=== PATIENT | female | born 1970 | race African-American/Black ===

== ENCOUNTER 2016-09-14 15:51 | Emergency (ER) | payer MEDICAID ==
[~2016-09-14] VITALS: Ht 170.2 cm; Wt 82.6 kg
[~2016-09-14 15:51] MED LIST: BENTYL10 MG ORAL; NEXIUM20 MG ORAL; NORVASC10 MG ORAL; ZANTAC150 MG ORAL
[2016-09-14 17:46] LABS: APPEARANCE,URINE CLEAR; KETONES,URINE 1+ (NEGATIVE); LEUKOCYTE ESTERASE ,URINE 1+ (NEGATIVE); NITRITE,URINE NEGATIVE (NEGATIVE); PH,URINE 6 (4.5-8.0); PROTEIN,URINE 1+ (NEGATIVE); UROBILINOGEN,URINE NORMAL MG/DL (0.0-1.0)
[2016-09-14 18:05] LABS: BACTERIA,URINE FEW /HPF; RBC,URINE 0-2 /HPF (0 - 2); SQUAMOUS EPITHELIAL CELL,UR FEW /LPF (NONE/OCC); WBC,URINE 0-2 /HPF (0 - 2)
[2016-09-14 18:06] LABS: CALCIUM OXALATE CRYSTALS,UR MODERATE /LPF; MUCUS,URINE MANY /LPF (NONE/OCC)
[2016-09-14] MEDS ORDERED: Cyclobenzaprine 10mg Tab ORAL ONE (18:30)
[2016-09-14] MEDS ORDERED: Ketorolac 30mg Inj IM ONE (18:30)
[2016-09-14 18:42] VITALS: BP 172/101
--- NOTE | 2016-09-15 16:56 | Emergency Room Report ---
History of Present Illness General Chief Complaint: Lower Back Pain or Injury Source: Patient Present Illness HPI The patient is a 46-year-old female presenting with lower back pain which began 2 days prior. The patient is unsure why the pain began. Patient denies prior history of back pain. The pain is described as a 10/10 dull ache to the mid lower back and does not radiate. Pain is worse with movement such as bending over and twisting. Pain better with laying down. The patient denies numbness or tingling of extremities. The patient has not tried any medications Allergies: Coded Allergies: AZITHROMYCIN (Verified Allergy, Unknown, 09/14/16) Uncoded Allergies: PENICILLIN (Allergy, Unknown, hives, 04/26/16) Patient History Past Medical History: see triage record Pertinent Family History: none Last Menstrual Period: 09/03/16 Now: No Reviewed Nursing Documentation: PMH: Agreed, PSxH: Agreed Nursing Documentation-PMH Hx Hypertension: Yes Review of Systems All Other Systems: negative except mentioned in HPI Physical Exam Vital Signs Date Time Temp Pulse Resp B/P Pulse Ox O2 Delivery O2 Flow Rate FiO2 09/14/16 16:40 98.1 78 17 162/97 98 Room Air Sp02 EP Interpretation: reviewed, normal General Appearance: no apparent distress, alert, GCS 15, non-toxic Head: normocephalic, atraumatic Eyes: bilateral eye PERRL, bilateral eye normal inspection Respiratory: chest non-tender, lungs clear, normal breath sounds, speaking full sentences Cardiovascular #1: regular rate, rhythm, no edema Musculoskeletal: back normal, digits/nails normal, gait/station normal, normal range of motion, tender - TTP over bilat lumbar parspinous muscles Neurologic: alert, oriented x3, responsive, motor strength/tone normal, sensory intact, speech normal Psychiatric: judgement/insight normal, memory normal, mood/affect normal, no suicidal/homicidal ideation Skin: normal color, no rash, warm/dry, well hydrated Lymphatic: no adenopathy Medical Decision Making PA Attestation Dr. Spencer is my supervising physician. Patient management was discussed with my supervising physician Diagnostic Impression: Primary Impression: Sciatica ER Course The patient is a 46-year-old female presenting with lower back pain which began 2 days prior PE: Vitals show HTN. Pt states she missed her anti-HTN medication this evening. There is TTP over bilat lumbar paraspinous muscles. No midline TTP. No step- offs. Normal Gait. UA: 1+ leuk esterase. Otherwise unremarkable. The pt is given flexeril and toradol for pain with good relief. Pt will be [facility] with motrin and flexeril. ER precautions given Laboratory Tests Test 09/14/16 17:23 Urine Color Yellow Urine Appearance Clear Urine pH 6 (4.5-8.0) Urine Specific [place] 1.020 (1.005-1.035) Urine Protein 1+ (NEGATIVE) H Urine Glucose (UA) Negative (NEGATIVE) Urine Ketones 1+ (NEGATIVE) H Urine Occult Blood Negative (NEGATIVE) Urine Nitrite Negative (NEGATIVE) Urine Bilirubin Negative (NEGATIVE) Urine Urobilinogen Normal MG/DL (0.0-1.0) Urine Leukocyte Esterase 1+ (NEGATIVE) H Urine RBC 0-2 /HPF (0 - 2) Urine WBC 0-2 /HPF (0 - 2) Urine Squamous Epithelial Cells Few /LPF (NONE/OCC) Urine Calcium Oxalate Crystals Moderate /LPF (NONE) Urine Bacteria Few /HPF (NONE) Urine Mucus Many /LPF (NONE/OCC) H Urine HCG, Qualitative Negative Lab Results Impression UA: 1+ leuk esterase. Otherwise unremarkable. Last Vital Signs Date Time Temp Pulse Resp B/P Pulse Ox O2 Delivery O2 Flow Rate FiO2 09/14/16 18:42 98.1 79 14 172/101 98 Room Air Status: improved Disposition: HOME, SELF-CARE Condition: Improved Patient Instructions: Back Pain, Adult Additional Instructions: I discussed my findings with the patient. All questions and concerns have been answered. Treatment and medication compliance have been addressed. I advised the patient that they need to follow up with PMD in 3-5 days. Return to ED if pain remains or worsens, numbness or tingling occurs, new rash is noticed, fever is noticed, or if needed for any reason. Patient verbalized understanding of discharge instructions. MARTINE SOLARES Sep 15, 2016 16:56
== END 2016-09-14 18:45 | disposition home or self-care (01) ==
LOC: EMR 17:20
DX: M54.30 Sciatica, unspecified side (principal); I10 Essential (primary) hypertension; Z88.0 Allergy status to penicillin
CPT/HCPCS: 81003; 81025; 96372; 99283; J1885

== ENCOUNTER 2016-10-14 00:37 | Emergency (ER) | payer MEDICAID ==
[~2016-10-14] VITALS: Ht 170.2 cm; Wt 83.9 kg
[2016-10-14 00:50] VITALS: BP 155/37
[2016-10-14 02:15] VITALS: BP 149/87
[2016-10-14 02:35] LABS: INR 1.1 (0.9-1.1)
[2016-10-14 02:40] LABS: ALANINE AMINOTRANSFERASE 11 U/L (3-33); ALBUMIN/GLOBULIN RATIO 1.3 (1.0-2.7); ASPARTATE AMINO TRANSFERASE 17 U/L (5-40); CALCIUM 8.9 mg/dL (8.6-10.2); CARBON DIOXIDE 21 mEQ/L (20-30); CHLORIDE 101 mEQ/L (98-107); CREATININE 0.9 mg/dL (0.5-0.9); GLOMERULAR FILTRATION RATE > 60 mL/min (>60); HEMOLYSIS 26; POTASSIUM 3.5 mEQ/L (3.4-4.9); SODIUM 139 mEQ/L (135-145); TOTAL PROTEIN 6.7 g/dL (6.6-8.7)
[2016-10-14 02:43] LABS: TROPONIN I < 0.30 ng/mL (<=0.30)
[2016-10-14 02:45] LABS: BASOPHILS % (AUTO) 0.8 % (0.0-2.0); EOSINOPHILS % (AUTO) 3.3 % (0.0-3.0); LYMPHOCYTES % (AUTO) 35.3 % (20.0-45.0); MEAN CORPUSCULAR HEMOGLOBIN 26.6 PG (27.0-31.0); MEAN CORPUSCULAR HGB CONC 31.6 G/DL (32.0-36.0); MEAN CORPUSCULAR VOLUME 84 FL (80-99); MEAN PLATELET VOLUME 6.8 FL (6.5-10.1); NEUTROPHILS % (AUTO) 52.7 % (45.0-75.0); PLATELET COUNT 269 K/UL (150-450); RED BLOOD COUNT 3.54 M/UL (4.20-5.40); RED CELL DISTRIBUTION WIDTH 15.7 % (11.6-14.8); WHITE BLOOD COUNT 5.9 K/UL (4.8-10.8)
[2016-10-14 02:52] LABS: CKMB 1.6 ng/mL (< 3.8)
[2016-10-14] MEDS ORDERED: PEPCID40 MG PO (03:13)
[2016-10-14 03:20] VITALS: BP 135/80
--- NOTE | 2016-10-14 05:21 | Emergency Room Report ---
History of Present Illness General Chief Complaint: Chest Pain Source: Patient Present Illness HPI Patient presents with complaints of upper chest pain Mid epigastric discomfort Reports that she has been told that she was anemic in the past She also felt that there was some tingling and swelling to the ulnar aspect of the right hand Denies any fevers or chills denies any fall or trauma Denies any pleurisy Patient essentially points throughout the bilateral upper chest area and also epigastric region Allergies: Coded Allergies: AZITHROMYCIN (Verified Allergy, Unknown, 09/14/16) Uncoded Allergies: PENICILLIN (Allergy, Unknown, hives, 04/26/16) Patient History Past Medical History: see triage record Pertinent Family History: none Last Menstrual Period: 09/30/16 Now: No Reviewed Nursing Documentation: PMH: Agreed, PSxH: Agreed Nursing Documentation-PMH Past Medical History: No History, Except For Hx Hypertension: Yes Review of Systems All Other Systems: negative except mentioned in HPI Physical Exam Vital Signs Date Time Temp Pulse Resp B/P Pulse Ox O2 Delivery O2 Flow Rate FiO2 10/14/16 00:40 99.1 80 18 155/37 100 Room Air Sp02 EP Interpretation: reviewed, normal General Appearance: well appearing, no apparent distress Head: normocephalic, atraumatic Eyes: bilateral eye EOMI, bilateral eye PERRL ENT: hearing grossly normal, normal pharynx, TMs + canals normal, uvula midline Neck: full range of motion, supple, no meningismus, no bony tend Respiratory: lungs clear, normal breath sounds, no rhonchi, no respiratory distress, no retraction, no accessory muscle use Cardiovascular #1: normal peripheral pulses, regular rate, rhythm, no edema, no gallop, no JVD, no murmur Gastrointestinal: normal bowel sounds, non tender, soft, no mass, no organomegaly, non-distended, no guarding, no hernia, no pulsatile mass, no rebound Genitourinary: no CVA tenderness Musculoskeletal: normal inspection Neurologic: oriented x3, responsive, marketing technology coordinator III-XII nml as tested, motor strength/ tone normal, sensory intact Psychiatric: mood/affect normal Skin: normal color, no rash, warm/dry, palpation normal Lymphatic: normal inspection, no adenopathy Medical Decision Making Diagnostic Impression: Primary Impression: Chest pain ER Course Patient is a fairly complex patient with multiple differential to consideration including but not limited to cardiac cardiopulmonary and vascular emergencies Patient's blood work is appropriate, hemoglobin is 9.4 which sounds to be the patient's baseline Otherwise hemodynamically stable as well The exam does not reveal any obvious swelling of the right hand or the arm my differential for DVT is low Patient is stable for close outpatient followup, Labs Test 10/14/16 01:40 White Blood Count 5.9 K/UL (4.8-10.8) Red Blood Count 3.54 M/UL (4.20-5.40) Hemoglobin 9.4 G/DL (12.0-16.0) Hematocrit 29.8 % (37.0-47.0) Mean Corpuscular Volume 84 FL (80-99) Mean Corpuscular Hemoglobin 26.6 PG (27.0-31.0) Mean Corpuscular Hemoglobin Concent 31.6 G/DL (32.0-36.0) Red Cell Distribution Width 15.7 % (11.6-14.8) Platelet Count 269 K/UL (150-450) Mean Platelet Volume 6.8 FL (6.5-10.1) Neutrophils (%) (Auto) 52.7 % (45.0-75.0) Lymphocytes (%) (Auto) 35.3 % (20.0-45.0) Monocytes (%) (Auto) 8.0 % (1.0-10.0) Eosinophils (%) (Auto) 3.3 % (0.0-3.0) Basophils (%) (Auto) 0.8 % (0.0-2.0) Prothrombin Time 11.0 SEC (9.30-11.50) Prothromb Time International Ratio 1.1 (0.9-1.1) Activated Partial Thromboplast Time 19 SEC (23-33) Sodium Level 139 mEQ/L (135-145) Potassium Level 3.5 mEQ/L (3.4-4.9) Chloride Level 101 mEQ/L (98-107) Carbon Dioxide Level 21 mEQ/L (20-30) Blood Urea Nitrogen 14 mg/dL (7-23) Creatinine 0.9 mg/dL (0.5-0.9) Estimat Glomerular Filtration Rate > 60 mL/min (>60) Glucose Level 112 mg/dL (74-106) Calcium Level 8.9 mg/dL (8.6-10.2) Total Bilirubin < 0.2 mg/dL (0.0-1.2) Aspartate Amino Transf (AST/SGOT) 17 U/L (5-40) Alanine Aminotransferase (ALT/SGPT) 11 U/L (3-33) Alkaline Phosphatase 52 U/L (35-104) Total Creatine Kinase 128 U/L (26-140) Creatine Kinase MB 1.6 ng/mL (< 3.8) Creatine Kinase MB Relative Index 1.2 Troponin I < 0.30 ng/mL (<=0.30) Total Protein 6.7 g/dL (6.6-8.7) Albumin 3.8 g/dL (3.5-5.2) Globulin 2.9 g/dL Albumin/Globulin Ratio 1.3 (1.0-2.7) EKG Diagnostic Results Rate: normal Rhythm: NSR ST Segments: no acute changes Rhythm Strip Diag. Results EP Interpretation: yes Rate: 66 Rhythm: NSR, no PVC's, no ectopy Chest X-Ray Diagnostic Results EP Interpretation: Yes Findings: no consolidation, no effusion, no pneumothorax Number of Views: 1 Last Vital Signs Date Time Temp Pulse Resp B/P Pulse Ox O2 Delivery O2 Flow Rate FiO2 10/14/16 03:20 98.7 85 15 135/80 100 Room Air Status: improved Disposition: HOME, SELF-CARE Condition: Improved Scripts Famotidine (PEPCID) 40 Mg Tablet 40 MG PO DAILY, #7 TAB 0 Refills Prov: BRENDA SIERRA D.O. 10/14/16 Referrals: [facility] (PCP) Departure Forms: Return to Work Return to Work in (Days): 2 Return to Work Date: Oct 16, 2016 Patient Instructions: Nonspecific Chest Pain Additional Instructions: Patient is provided with the discharge instructions notified to follow up with primary doctor in the next 2-3 days otherwise return to the er with any worsening symptoms. Please note that this report is being documented using [employer] technology. This can lead to erroneous entry secondary to incorrect interpretation by the dictating instrument. BRENDA SIERRA D.O. Oct 14, 2016 05:21
--- NOTE | 2016-10-14 10:53 | Diagnostic Imaging Report ---
Indication: Chest Pain Comparison: None A single view chest radiograph was obtained. Findings: Cardiomediastinal appearance is within normal limits for age. Pulmonary vascularity is appropriate. The diaphragmatic contour is smooth and costophrenic angles are sharp. No pleural effusions are identified. The bones are unremarkable. Impression: No acute findings
--- NOTE | 2016-10-15 14:03 | Cardiology Report ---
APPROVED REPORT EKG Measurement Heart [id number] Normal sinus rhythm Normal ECG
== END 2016-10-14 03:20 | disposition home or self-care (01) ==
LOC: EMR 01:10
DX: R07.9 Chest pain, unspecified (principal); R10.13 Epigastric pain; I10 Essential (primary) hypertension; Z88.0 Allergy status to penicillin
CPT/HCPCS: 36415; 71010; 80053; 82550; 82553; 84484; 85025; 85610; 85730; 93005; 99283

== ENCOUNTER 2017-03-24 17:25 | Emergency (ER) | payer MEDICAID ==
[~2017-03-24] VITALS: Ht 170.2 cm; Wt 83.9 kg
[~2017-03-24 17:25] MED LIST changes: +PEPCID40 MG PO
[2017-03-24 17:28] VITALS: BP 140/85
[2017-03-24] MEDS ORDERED: GABAPENTIN300 MG ORAL (17:31)
[2017-03-24] MEDS ORDERED: IRON 21/7 TABL1 EACH PO (17:31)
[2017-03-24] MEDS ORDERED: Famotidine 20 MG/ 2ML VIAL IVP ONE (17:45)
[2017-03-24] MEDS ORDERED: Metoclopramide 10mg/2ml Inj IVP ONE (18:00)
[2017-03-24 18:24] LABS: BASOPHILS % (AUTO) 0.8 % (0.0-2.0); EOSINOPHILS % (AUTO) 3.2 % (0.0-3.0); LYMPHOCYTES % (AUTO) 25.8 % (20.0-45.0); MEAN CORPUSCULAR HEMOGLOBIN 32.7 PG (27.0-31.0); MEAN CORPUSCULAR HGB CONC 35.2 G/DL (32.0-36.0); MEAN CORPUSCULAR VOLUME 93 FL (80-99); MEAN PLATELET VOLUME 7.1 FL (6.5-10.1); MONOCYTES % (AUTO) 6.8 % (1.0-10.0); NEUTROPHILS % (AUTO) 63.4 % (45.0-75.0); PLATELET COUNT 209 K/UL (150-450); RED BLOOD COUNT 2.55 M/UL (4.20-5.40); WHITE BLOOD COUNT 7.3 K/UL (4.8-10.8)
[2017-03-24 18:39] LABS: ALANINE AMINOTRANSFERASE 15 U/L (3-33); ALBUMIN/GLOBULIN RATIO 1.5 (1.0-2.7); ANION GAP 10 (5-15); ASPARTATE AMINO TRANSFERASE 18 U/L (5-40); CALCIUM 9.2 mg/dL (8.6-10.2); CARBON DIOXIDE 26 mEQ/L (20-30); CHLORIDE 105 mEQ/L (98-107); CREATININE 0.8 mg/dL (0.5-0.9); GLOMERULAR FILTRATION RATE > 60 mL/min (>60); HEMOLYSIS 3; LIPASE 116 U/L (< 60); POTASSIUM 3.4 mEQ/L (3.4-4.9); SODIUM 141 mEQ/L (135-145); TOTAL PROTEIN 6.8 g/dL (6.6-8.7)
[2017-03-24 18:51] LABS: APPEARANCE,URINE SLIGHTLY CLOUDY; KETONES,URINE NEGATIVE (NEGATIVE); LEUKOCYTE ESTERASE ,URINE 1+ (NEGATIVE); NITRITE,URINE NEGATIVE (NEGATIVE); PH,URINE 5 (4.5-8.0); PROTEIN,URINE NEGATIVE (NEGATIVE); UROBILINOGEN,URINE NORMAL MG/DL (0.0-1.0)
[2017-03-24 18:55] LABS: PROTHROMBIN TIME 10.2 SEC (9.30-11.50)
[2017-03-24 18:59] LABS: CALCIUM OXALATE CRYSTALS,UR MANY /LPF; RBC,URINE 0-2 /HPF (0 - 2); SQUAMOUS EPITHELIAL CELL,UR MODERATE /LPF (NONE/OCC); WBC,URINE 0-2 /HPF (0 - 2)
[2017-03-24 19:00] LABS: BACTERIA,URINE FEW /HPF
--- NOTE | 2017-03-24 19:49 | Emergency Room Report ---
History of Present Illness General Chief Complaint: Abdominal Pain Source: Patient, Medical Record Present Illness HPI The patient is a 46-year-old female with a history of anemia presenting for lower abd pain and dark stools. Symptoms began approximately one week prior. Pain is a 5/10 dull ache to the mid upper abdomen and does not radiate. No known provoking factors. She denies constipation or diarrhea. She has not seen any bright red blood in the stools or on toilet paper. She denies taking any products containing bismuth or eating any foods with dye. She states that recent blood work showed hemoglobin of 6. She states that she has recently stopped taking supplemental iron. She denies any other symptoms including N, V, F, chills, back pain Allergies: Coded Allergies: AZITHROMYCIN (Verified Allergy, Unknown, 09/14/16) PENICILLINS (Unverified Adverse Reaction, Unknown, 03/24/17) Uncoded Allergies: PENICILLIN (Allergy, Unknown, hives, 04/26/16) Patient History Past Medical History: see triage record Pertinent Family History: none Reviewed Nursing Documentation: PMH: Agreed, PSxH: Agreed Nursing Documentation-PMH Past Medical History: No History, Except For Hx Hypertension: Yes Review of Systems All Other Systems: negative except mentioned in HPI Physical Exam Vital Signs Date Time Temp Pulse Resp B/P Pulse Ox O2 Delivery O2 Flow Rate FiO2 03/24/17 17:28 98.1 103 16 140/85 98 Room Air Sp02 EP Interpretation: reviewed, normal General Appearance: no apparent distress, alert, GCS 15, non-toxic Head: normocephalic, atraumatic Eyes: bilateral eye PERRL, bilateral eye normal inspection, bilateral eye other - conjunctival palor, bilateral eye scleral icterus ENT: hearing grossly normal, normal pharynx, no angioedema, normal voice Neck: full range of motion, supple/symm/no masses Respiratory: chest non-tender, lungs clear, normal breath sounds, speaking full sentences Gastrointestinal: normal bowel sounds, soft, non-distended, no guarding, no rebound, tenderness - suprapubic Rectal: deferred Genitourinary: normal inspection, no CVA tenderness Musculoskeletal: back normal, gait/station normal, normal range of motion, non- tender Neurologic: alert, oriented x3, responsive, motor strength/tone normal, sensory intact, speech normal Psychiatric: judgement/insight normal, memory normal, mood/affect normal, no suicidal/homicidal ideation Skin: normal color, no rash, warm/dry, well hydrated Lymphatic: no adenopathy Medical Decision Making PA Attestation Dr. Salvador is my supervising physician. Patient management was discussed with my supervising physician Diagnostic Impression: Primary Impression: Abdominal pain Qualified Codes: R10.9 - Unspecified abdominal pain Additional Impressions: Spleen anomaly Anemia Qualified Codes: D50.9 - Iron deficiency anemia, unspecified Uterine fibroid Qualified Codes: D25.9 - Leiomyoma of uterus, unspecified ER Course The patient is a 46-year-old female with a history of anemia presenting for lower abd pain and dark stools Differential diagnoses considered include but not limited to GI bleed, gastritis , pancreatitis, appendicitis, , UTI, among others Physical exam: No apparent distress There is bilateral conjunctival pallor TTP over suprapubic region only The hemoglobin is 8.3 The patient states that this is improved from her usual hemoglobin of 6 CT scan shows hypodensities of the spleen and uterine fibroids. Otherwise unremarkable The patient was given reported these findings and will followup with primary doctor To continue to take the iron supplementation pills. ER precautions given Laboratory Tests Test 03/24/17 17:45 03/24/17 18:00 Urine Color Pale yellow Urine Appearance Slightly cloudy Urine pH 5 (4.5-8.0) Urine Specific [place] 1.025 (1.005-1.035) Urine Protein Negative (NEGATIVE) Urine Glucose (UA) Negative (NEGATIVE) Urine Ketones Negative (NEGATIVE) Urine Occult Blood Negative (NEGATIVE) Urine Nitrite Negative (NEGATIVE) Urine Bilirubin Negative (NEGATIVE) Urine Urobilinogen Normal MG/DL (0.0-1.0) Urine Leukocyte Esterase 1+ (NEGATIVE) H Urine RBC 0-2 /HPF (0 - 2) Urine WBC 0-2 /HPF (0 - 2) Urine Squamous Epithelial Cells Moderate /LPF (NONE/OCC) H Urine Calcium Oxalate Crystals Many /LPF (NONE) Urine Bacteria Few /HPF (NONE) Urine HCG, Qualitative Negative White Blood Count 7.3 K/UL (4.8-10.8) Red Blood Count 2.55 M/UL (4.20-5.40) L Hemoglobin 8.3 G/DL (12.0-16.0) L Hematocrit 23.7 % (37.0-47.0) L Mean Corpuscular Volume 93 FL (80-99) Mean Corpuscular Hemoglobin 32.7 PG (27.0-31.0) H Mean Corpuscular Hemoglobin Concent 35.2 G/DL (32.0-36.0) Red Cell Distribution Width 16.0 % (11.6-14.8) H Platelet Count 209 K/UL (150-450) Mean Platelet Volume 7.1 FL (6.5-10.1) Neutrophils (%) (Auto) 63.4 % (45.0-75.0) Lymphocytes (%) (Auto) 25.8 % (20.0-45.0) Monocytes (%) (Auto) 6.8 % (1.0-10.0) Eosinophils (%) (Auto) 3.2 % (0.0-3.0) H Basophils (%) (Auto) 0.8 % (0.0-2.0) Prothrombin Time 10.2 SEC (9.30-11.50) Prothrombin Time INR 1.0 (0.9-1.1) PTT 24 SEC (23-33) Sodium Level 141 mEQ/L (135-145) Potassium Level 3.4 mEQ/L (3.4-4.9) Chloride Level 105 mEQ/L (98-107) Carbon Dioxide Level 26 mEQ/L (20-30) Anion Gap 10 (5-15) Blood Urea Nitrogen 14 mg/dL (7-23) Creatinine 0.8 mg/dL (0.5-0.9) Estimate Glomerular Filtration Rate > 60 mL/min (>60) Glucose Level 117 mg/dL (74-106) H Calcium Level 9.2 mg/dL (8.6-10.2) Total Bilirubin < 0.2 mg/dL (0.0-1.2) Aspartate Amino Transferase (AST) 18 U/L (5-40) Alanine Aminotransferase (ALT) 15 U/L (3-33) Alkaline Phosphatase 56 U/L (35-104) Total Protein 6.8 g/dL (6.6-8.7) Albumin 4.1 g/dL (3.5-5.2) Globulin 2.7 g/dL Albumin/Globulin Ratio 1.5 (1.0-2.7) Lipase 116 U/L (< 60) H Lab Results Impression No leukocytosis. Hgb of 8.3 CT/MRI/US Diagnostic Results CT/MRI/US Diagnostic Results : Imaging Test Ordered: Abd/pelvis Impression hypodensities of spleen and uterine fibroids per radiologist. Last Vital Signs Date Time Temp Pulse Resp B/P Pulse Ox O2 Delivery O2 Flow Rate FiO2 03/24/17 17:28 98.1 103 16 140/85 98 Room Air Status: improved Disposition: HOME, SELF-CARE Condition: Improved MARTINE SOLARES Mar 24, 2017 19:49
[2017-03-24 20:07] VITALS: BP 140/85
--- NOTE | 2017-03-28 08:28 | Diagnostic Imaging Report ---
Indication: Abdominal pain Technique: Continuous helical transaxial imaging of the abdomen and pelvis was obtained from the lung bases to the pubic symphysis during intravenous contrast administration. Coronal 2-D reformats were also obtained. Study obtained in a Siemens sensation [address] Total Dose length Product (DLP): [address] Dose Index Volume (CTDIvol): 18 mGy Comparison: None Findings: There are rounded hypodensities within the spleen nature which is not known. Further investigation suggested. Comparison previous films if available is recommended. The lung bases are clear. There is a left renal cyst measuring 3 cm. The liver is unremarkable. The pancreas and gallbladder are unremarkable. There is no hydronephrosis, free fluid or free air. The uterus is enlarged secondary to multiple fibroids. There is suggestion of a left ovarian cyst measuring about 2.8 x 1.8 cm. The appendix is normal. Impression: Several rounded hypodensities within the spleen, etiology unknown. Further workup is recommended including comparison with previous studies available. Sonographic correlation may be of benefit. No acute findings in the abdomen identified. Left renal cyst Suggestion of a left ovarian cyst. Uterine fibroids. The CT scanner at [facility] is accredited by the [employer] and the scans are performed using dose optimization techniques as appropriate to a performed exam including Automatic Exposure control.
== END 2017-03-24 20:07 | disposition home or self-care (01) ==
LOC: EMR 17:55
DX: R10.30 Lower abdominal pain, unspecified (principal); D64.9 Anemia, unspecified; N28.1 Cyst of kidney, acquired; D73.9 Disease of spleen, unspecified; D25.9 Leiomyoma of uterus, unspecified; Z23 Encounter for immunization; I10 Essential (primary) hypertension
CPT/HCPCS: 36415; 74177; 80053; 81003; 81025; 83690; 85025; 85610; 85730; 86850; 86900; 86901; 96374; 96375; 99284; J2765; Q9967; S0028

== ENCOUNTER 2017-08-10 09:03 | Emergency (ER) | payer MEDICAID ==
[~2017-08-10] VITALS: Ht 170.2 cm; Wt 83.9 kg
[~2017-08-10 09:03] MED LIST changes: +GABAPENTIN300 MG ORAL; +IRON 21/7 TABL1 EACH PO
[2017-08-10] MEDS ORDERED: Ketorolac 30mg Inj IM ONE (09:30)
[2017-08-10 09:48] LABS: APPEARANCE,URINE CLEAR; KETONES,URINE NEGATIVE (NEGATIVE); LEUKOCYTE ESTERASE ,URINE 1+ (NEGATIVE); NITRITE,URINE NEGATIVE (NEGATIVE); PH,URINE 5 (4.5-8.0); PROTEIN,URINE 1+ (NEGATIVE); UROBILINOGEN,URINE NORMAL MG/DL (0.0-1.0)
[2017-08-10 09:57] LABS: BACTERIA,URINE FEW /HPF; MUCUS,URINE MODERATE /LPF (NONE/OCC); SQUAMOUS EPITHELIAL CELL,UR FEW /LPF (NONE/OCC); WBC,URINE 0-2 /HPF (0 - 2)
[2017-08-10] MEDS ORDERED: IBUPROFEN600 MG ORAL (10:14)
[2017-08-10] MEDS ORDERED: NORCO 5-325 TA1 EACH ORAL (10:14)
[2017-08-10 10:30] VITALS: BP 161/103
--- NOTE | 2017-08-11 16:01 | Emergency Room Report ---
History of Present Illness General Chief Complaint: Lower Back Pain or Injury Source: Patient Present Illness HPI 47-year-old female presents ED complaining of back pain for last 3 days. Pain as throbbing, 8/10, localized right lower back. Patient notes history of back pain and sciatica. Denies fevers or chills. Denies nausea or vomiting. No other aggravating relieving factors. Denies any other says isn't Allergies: Coded Allergies: AZITHROMYCIN (Verified Allergy, Unknown, 09/14/16) PENICILLINS (Unverified Adverse Reaction, Unknown, 03/24/17) Uncoded Allergies: PENICILLIN (Allergy, Unknown, hives, 04/26/16) Patient History Past Medical History: HTN Past Surgical History: none Pertinent Family History: none Social History: Denies: smoking, alcohol use, drug use Last Menstrual Period: October 2016. Now: No Immunizations: UTD Reviewed Nursing Documentation: PMH: Agreed, PSxH: Agreed Nursing Documentation-PMH Hx Hypertension: Yes Review of Systems All Other Systems: negative except mentioned in HPI Physical Exam Vital Signs Date Time Temp Pulse Resp B/P (MAP) Pulse Ox O2 Delivery O2 Flow Rate FiO2 08/10/17 09:06 97.9 86 19 156/101 99 Room Air Sp02 EP Interpretation: reviewed, normal General Appearance: no apparent distress, alert, GCS 15, non-toxic Head: normocephalic Eyes: bilateral eye normal inspection, bilateral eye PERRL ENT: normal ENT inspection Neck: normal inspection Respiratory: normal inspection Cardiovascular #1: normal inspection Gastrointestinal: normal inspection Rectal: deferred Genitourinary: no CVA tenderness, no vertebral tenderness, other - paraspinal lumbar tenderness Musculoskeletal: normal inspection Neurologic: alert, oriented x3, responsive, motor strength/tone normal, sensory intact, speech normal Psychiatric: normal inspection Skin: normal inspection Lymphatic: normal inspection Medical Decision Making Diagnostic Impression: Primary Impression: Sciatica Qualified Codes: M54.31 - Sciatica, right side ER Course Hospital Course 47-year-old female presents ED complaining of lower back pain. No evidence of trauma Differential diagnoses include: pyelonephritis, kidney stone, muscle strain, Lspine fracture Clinical course Patient placed on stretcher. After initial history and physical I ordered toradol for pain. UA unremarkable Upon reassessment patient states pain has improved. Diagnosis - sciatica Stable and discharged to home with prescription for Motrin, [place]. Followup with PMD. Return to ED if symptoms recur or worsen Labs Test 08/10/17 09:28 Urine Color Yellow Urine Appearance Clear Urine pH 5 (4.5-8.0) Urine Specific [place] 1.015 (1.005-1.035) Urine Protein 1+ (NEGATIVE) Urine Glucose (UA) Negative (NEGATIVE) Urine Ketones Negative (NEGATIVE) Urine Occult Blood 1+ (NEGATIVE) Urine Nitrite Negative (NEGATIVE) Urine Bilirubin Negative (NEGATIVE) Urine Urobilinogen Normal MG/DL (0.0-1.0) Urine Leukocyte Esterase 1+ (NEGATIVE) Urine RBC 2-4 /HPF (0 - 2) Urine WBC 0-2 /HPF (0 - 2) Urine Squamous Epithelial Cells Few /LPF (NONE/OCC) Urine Bacteria Few /HPF (NONE) Urine Mucus Moderate /LPF (NONE/OCC) Urine HCG, Qualitative Negative Last Vital Signs Date Time Temp Pulse Resp B/P (MAP) Pulse Ox O2 Delivery O2 Flow Rate FiO2 08/10/17 10:30 98.3 83 18 161/103 100 Room Air Status: improved Disposition: HOME, SELF-CARE Condition: Stable Scripts Hydrocodone Bit/Acetaminophen 5-325* (NORCO 5-325*) 1 Each Tablet 1 TAB ORAL Q6H Y for For Pain, #10 TAB 0 Refills Prov: LORRAINE DEMARCO M.D. 08/10/17 Ibuprofen* (MOTRIN*) 600 Mg Tablet 600 MG ORAL Q8H Y for For Pain, #30 TAB 0 Refills Prov: LORRAINE DEMARCO M.D. 08/10/17 Referrals: NON PHYSICIAN (PCP) Patient Instructions: Back Pain, Adult LORRAINE DEMARCO M.D. Aug 11, 2017 16:01
== END 2017-08-10 10:30 | disposition home or self-care (01) ==
LOC: EMR 09:20
DX: M54.41 Lumbago with sciatica, right side (principal); I10 Essential (primary) hypertension; Z88.0 Allergy status to penicillin
CPT/HCPCS: 81003; 81025; 96372; 99284; J1885

== ENCOUNTER 2018-12-20 18:37 | Emergency (ER) | payer MEDICAID ==
[~2018-12-20] VITALS: Ht 170.2 cm; Wt 83.9 kg
[~2018-12-20 18:37] MED LIST changes: +IBUPROFEN600 MG ORAL; +NORCO 5-325 TA1 EACH ORAL
[2018-12-20 19:10] VITALS: BP 141/82
--- NOTE | 2018-12-20 19:10 | NUR ---
ED Nurse Note: Pt arrived ED from home, c/o the 2nd digit finger was injuried and swollen at home today and pain 01/22. Pt is A/O X 4. Vital signs stable at this time, waiting for orders.
[2018-12-20] MEDS ORDERED: Tetanus/Diptheria/Pertussis IM ONE (19:30)
[2018-12-20] MEDS ORDERED: Ketorolac 30mg Inj IM ONE (19:30)
--- NOTE | 2018-12-20 19:46 | Emergency Room Report ---
History of Present Illness General Chief Complaint: Upper Extremity Injury Source: Patient Present Illness HPI 48 YO Female presents to the ED with 2 complaints. First, she received a puncture wound from a metal staple and is now having swelling , 7/10 in severity pain, bruising and erythema to the right index finger at the puncture site. this occurred this am. pt. reports she is not sure when her last Tetanus vaccination was and she is also unsure if there is a possible retained FB. Pt. denies taking blood thinning medications. pt. denies paresthesias or loss of gross motor movement in the affected extremity. Secondly, pt. is complaining of an exacerbation of her chronic back pain x 1 week. pt. denies trauma or fall. she reports frequent flare up's of her sciatica type pain. She rates 7/10 in severity. Denies saddle anesthesia, urinary retention or incontinence. Pt. denies recent spinal procedures or hx of cancer. She reports Motrin has not been providing relief of her pain. pt. states bending forward or lying completely flat exacerbates her back symptoms. She also reports bending the right index finger or palpation exacerbates her finger pain. She is right hand dominant. Allergies: Coded Allergies: AZITHROMYCIN (Verified Allergy, Unknown, 09/14/16) PENICILLINS (Unverified Adverse Reaction, Unknown, 03/24/17) Patient History Past Medical History: see triage record Past Surgical History: none Pertinent Family History: none Last Menstrual Period: last year Now: No Reviewed Nursing Documentation: PMH: Agreed; PSxH: Agreed Nursing Documentation-PMH Past Medical History: No History, Except For Hx Hypertension: Yes Review of Systems All Other Systems: negative except mentioned in HPI Physical Exam Vital Signs Date Time Temp Pulse Resp B/P (MAP) Pulse Ox O2 Delivery O2 Flow Rate FiO2 12/20/18 18:56 98.4 90 20 97 Room Air Sp02 EP Interpretation: reviewed, normal General Appearance: no apparent distress, alert, GCS 15, non-toxic Head: normocephalic, atraumatic Eyes: bilateral eye normal inspection, bilateral eye PERRL ENT: hearing grossly normal, normal voice Neck: full range of motion Respiratory: chest non-tender, lungs clear, normal breath sounds, speaking full sentences Cardiovascular #1: regular rate, rhythm, normal capillary refill Genitourinary: normal inspection, no CVA tenderness Musculoskeletal: back normal, gait/station normal, normal range of motion, swelling - PIP right index finger. , other - Puncture wound of Right index finger at the PIP joint. Swelling, erythema, bruising noted. No obvious FB noted , tender - TTP to the PIP of the right index finger, and the Right upper gluteal musculature and right low lumbar paraspinal musculature, no bony midline ttp. Neurologic: alert, oriented x3, responsive, motor strength/tone normal, sensory intact, normal gait, speech normal, grossly normal Psychiatric: judgement/insight normal Skin: no rash, warm/dry, well hydrated, other - Puncture wound of Right index finger at the PIP joint. Swelling, erythema, bruising noted. No obvious FB noted Lymphatic: no adenopathy Medical Decision Making PA Attestation Dr. Thompson is my supervising Physician whom patient management has been discussed with. Diagnostic Impression: Primary Impression: Puncture wound Additional Impression: Back pain Qualified Codes: M54.41 - Lumbago with sciatica, right side ER Course 48 YO Female presents to the ED with 2 complaints. First, she received a puncture wound from a metal staple and is now having swelling , 7/10 in severity pain, bruising and erythema to the right index finger at the puncture site. this occurred this am. pt. reports she is not sure when her last Tetanus vaccination was and she is also unsure if there is a possible retained FB. Pt. denies taking blood thinning medications. pt. denies paresthesias or loss of gross motor movement in the affected extremity. Secondly, pt. is complaining of an exacerbation of her chronic back pain x 1 week. pt. denies trauma or fall. she reports frequent flare up's of her sciatica type pain. She rates 7/10 in severity. Denies saddle anesthesia, urinary retention or incontinence. Pt. denies recent spinal procedures or hx of cancer. She reports Motrin has not been providing relief of her pain. pt. states bending forward or lying completely flat exacerbates her back symptoms. She also reports bending the right index finger or palpation exacerbates her finger pain. She is right hand dominant. Ddx considered but are not limited to foreign body, tendon injury, cellulitis, Vital signs: are WNL, pt. is afebrile H&PE are most consistent with: Puncture wound of Right index finger at the PIP joint. Swelling, erythema, bruising noted. No obvious FB noted will do imaging to confirm. ORDERS: none required at this time, the diagnosis is clinical ED INTERVENTIONS: -Tetanus vaccine was administered as pt. vaccination status was unknown. - The wound was copiously irrigated with normal saline, and explored for foreign body for which no FB was found. -Discussed with patient that we do not close puncture wounds as that would increase his risk of infection. - Discussed with patient that we will be treating her with oral antibiotics. Sciatica /back pain interventions: Toradol IM, Lidoderm TP. DISCHARGE: At this time pt. is stable for d/c to home. Will provide printed patient care instructions, and any necessary prescriptions. Care plan and follow up instructions have been discussed with the patient prior to discharge. Other X-Ray Diagnostic Results Other X-Ray Diagnostic Results : X-Ray ordered: Right Fingers # of Views/Limited Vs Complete: 3 View Indication: Pain EP Interpretation: Yes DEVIN Xray: Interpretation reviewed, by supervising MD, and agrees with findings. Interpretation: no dislocation, no soft tissue swelling, no fractures, other - no radiopaque fb's Impression: No acute disease Electronically Signed by: Thea Campos PA-C Last Vital Signs Date Time Temp Pulse Resp B/P (MAP) Pulse Ox O2 Delivery O2 Flow Rate FiO2 12/20/18 18:56 98.4 90 20 97 Room Air Status: improved Disposition: HOME, SELF-CARE Condition: Stable Scripts Methocarbamol* (ROBAXIN-750*) 750 Mg Tablet 750 MG PO QID for 7 Days, #28 TAB 0 Refills Prov: Thea Campos 12/20/18 Ibuprofen* (MOTRIN*) 600 Mg Tablet 600 MG ORAL THREE TIMES A DAY, #20 TAB 0 Refills Prov: Thea Campos 12/20/18 Lidocaine (Lidoderm) 1 Each Adh..patch 1 PATCH TOPIC DAILY, #30 PATCH 0 Refills Patch(es) may remain in place for up to 12 hours in any 24-hour period. Prov: Thea Campos 12/20/18 Bacitracin/Polymyxin B Sulfate (BACITRACIN-POLYMYXIN OINTMENT) 28.35 Gm Oint...g. 1 APPLIC TP BID, #28.3 GM Prov: Thea Campos 12/20/18 Doxycycline Hyclate* (VIBRAMYCIN*) 100 Mg Capsule 100 MG ORAL EVERY 12 HOURS for 7 Days, #14 CAP 0 Refills Prov: Thea Campos 12/20/18 Patient Instructions: Puncture Wound, [id number], Sciatica, [id number] Additional Instructions: Take medications as directed. Follow up with a Primary Care Provider in 3-5 days, even if your symptoms have resolved. --Please review list of primary care clinics, if you do not already have a primary care provider Return sooner to ED if new symptoms occur, or current symptoms become worse. Do not drink alcohol, drive, or operate heavy machinery while taking Robaxin ( Muscle Relaxers) as this may cause drowsiness. - Please note that this Emergency Department Report was dictated using [employer] painter technology software, occasionally this can lead to erroneous entry secondary to interpretation by the dictation equipment. Thea Campos December 20, 2018 19:46
[2018-12-20] MEDS ORDERED: BACITRACIN-P28.35 GM TP (19:51)
[2018-12-20] MEDS ORDERED: LIDODERM700 M1 TOPIC (19:51)
[2018-12-20] MEDS ORDERED: IBUPROFEN600 MG ORAL (19:51)
[2018-12-20] MEDS ORDERED: VIBRAMYCIN100 MG ORAL (19:51)
[2018-12-20] MEDS ORDERED: ROBAXIN-750750 MG PO (19:55)
--- NOTE | 2018-12-20 19:59 | NUR ---
ED Nurse Note: Meds given as ordered.
[2018-12-20 20:05] VITALS: BP 141/82
--- NOTE | 2018-12-20 20:05 | NUR ---
D/cER DISCHARGE NOTE: Patient is cleared to be discharged per Andres Sidhu/DEVIN. Pt is aox4, on room air with stable vital signs. Pt was given dc and prescription instructions, pt was able to verbalize understanding. Pt's ID band removed. pt is able to ambulate with steady gait and took all belongings.
--- NOTE | 2018-12-21 11:02 | Diagnostic Imaging Report ---
Indication: Finger pain Comparison: None Findings: 3 images of the right second and third digits obtained. No fracture, malalignment, radiopaque foreign body identified. There is soft tissue swelling of the index finger. IMPRESSION: Soft tissue swelling
== END 2018-12-20 20:05 | disposition home or self-care (01) ==
LOC: EMR 19:30
DX: S61.230A Puncture wound without foreign body of right index finger without damage to nail, initial encounter (principal); Z23 Encounter for immunization; M54.41 Lumbago with sciatica, right side; W26.8XXA Contact with other sharp object(s), not elsewhere classified, initial encounter; Y92.9 Unspecified place or not applicable; Z88.0 Allergy status to penicillin; I10 Essential (primary) hypertension
CPT/HCPCS: 73140; 90471; 90715; 96372; 99283; J1885

== ENCOUNTER 2019-03-07 18:55 | Emergency (ER) | payer MEDICAID ==
[~2019-03-07] VITALS: Ht 170.2 cm; Wt 81.6 kg
[~2019-03-07 18:55] MED LIST changes: +BACITRACIN-P28.35 GM TP; +LIDODERM700 M1 TOPIC; +ROBAXIN-750750 MG PO; +VIBRAMYCIN100 MG ORAL
[2019-03-07] MEDS ORDERED: HYDROCHLOROTH12.5 M2 ORAL (19:03)
--- NOTE | 2019-03-07 19:05 | NUR ---
ED Nurse Note: patient drove self to ED c/o chest pain radiation to the left shoulder area. C/O fatigue. BP 152/81, pulse 89. Patient is alert, oriented x4, able to ambulate without difficulty. Bed is in lowest position. Call light is within aesy reach while in bed will continue to monitor.
[2019-03-07 19:10] VITALS: BP 150/80
[2019-03-07 19:39] LABS: BASOPHILS % (AUTO) 1.1 % (0.0-2.0); EOSINOPHILS % (AUTO) 2.8 % (0.0-3.0); HEMATOCRIT 37.8 % (37.0-47.0); HEMOGLOBIN 12.5 G/DL (12.0-16.0); LYMPHOCYTES % (AUTO) 25.6 % (20.0-45.0); MEAN CORPUSCULAR VOLUME 90 FL (80-99); MONOCYTES % (AUTO) 8.2 % (1.0-10.0); NEUTROPHILS % (AUTO) 62.2 % (45.0-75.0); PLATELET COUNT 276 K/UL (150-450); RED BLOOD COUNT 4.21 M/UL (4.20-5.40); RED CELL DISTRIBUTION WIDTH 11.2 % (11.6-14.8)
[2019-03-07 19:52] LABS: ANION GAP 9 mmol/L (5-15); BLOOD UREA NITROGEN 22 mg/dL (7-18); CALCIUM 10.2 MG/DL (8.5-10.1); CARBON DIOXIDE 30 MMOL/L (21-32); CHLORIDE 103 MMOL/L (98-107); CREATININE 0.8 MG/DL (0.55-1.30); POTASSIUM 3.3 MMOL/L (3.5-5.1); SODIUM 142 MMOL/L (136-145)
--- NOTE | 2019-03-07 20:01 | Emergency Room Report ---
History of Present Illness General Chief Complaint: Chest Pain Source: Patient, Medical Record Present Illness HPI 48-year-old female presents ED for evaluation. Patient complaining of chest pain x1 week. Radiating to the shoulder and upper back. Comes and goes. Denies chest pain at this time. Dull, 5 out of 10. Denies shortness of breath. Notes history of hypertension. Denies smoking or drug use. No other aggravating relieving factors. Denies any other associated symptoms Allergies: Coded Allergies: AZITHROMYCIN (Verified Allergy, Unknown, 09/14/16) PENICILLINS (Unverified Adverse Reaction, Unknown, 03/24/17) Patient History Past Medical History: HTN Past Surgical History: none Pertinent Family History: none Social History: Denies: smoking, alcohol use, drug use Last Menstrual Period: last yr Now: No Immunizations: UTD Reviewed Nursing Documentation: PMH: Agreed; PSxH: Agreed Nursing Documentation-PMH Hx Hypertension: Yes Review of Systems All Other Systems: negative except mentioned in HPI Physical Exam Vital Signs Date Time Temp Pulse Resp B/P (MAP) Pulse Ox O2 Delivery O2 Flow Rate FiO2 03/07/19 19:00 98.4 90 18 137/91 (106) 97 Room Air Sp02 EP Interpretation: reviewed, normal General Appearance: no apparent distress, alert, GCS 15, non-toxic Head: normocephalic, atraumatic Eyes: bilateral eye normal inspection, bilateral eye PERRL ENT: hearing grossly normal, normal pharynx, no angioedema, normal voice Neck: full range of motion, supple/symm/no masses Respiratory: chest non-tender, lungs clear, normal breath sounds, speaking full sentences Cardiovascular #1: regular rate, rhythm, no edema Cardiovascular #2: 2+ carotid (R), 2+ carotid (L), 2+ radial (R), 2+ radial (L) , 2+ dorsalis pedis (R), 2+ dorsalis pedis (L) Gastrointestinal: normal bowel sounds, non tender, soft, non-distended, no guarding, no rebound Rectal: deferred Genitourinary: normal inspection, no CVA tenderness Musculoskeletal: back normal, gait/station normal, normal range of motion, non- tender Neurologic: alert, oriented x3, responsive, motor strength/tone normal, sensory intact, speech normal Psychiatric: judgement/insight normal, memory normal, mood/affect normal, no suicidal/homicidal ideation Reflexes: 3+ bicep (R), 3+ bicep (L), 3+ tricep (R), 3+ tricep (L), 3+ knee (R) , 3+ knee (L) Lymphatic: no adenopathy Medical Decision Making Diagnostic Impression: Primary Impression: Chest pain Qualified Codes: R07.9 - Chest pain, unspecified ER Course Hospital Course 48 yo F presents with chest pain, back pain x 1 week Differential diagnoses include: Rib fracture, CA/unstable angina, contusion, muscle strain Clinical course Patient placed on stretcher. After initial history and physical I ordered labs , EKG, chest x-ray. labs reviewed- all electrolytes normal, troponins negative, no leukocytosis, hemoglobin/hematocrit stable EKG - NSr, no acute ischemic changes interpreted by me Chest x-ray-no cardiomegaly, no rib fracture, no pneumothorax, no acute process discussed findings with patient. Given presentation along with normal EKG and negative troponin with symptoms x1 week I believe patient can be safely discharged at this time. Pain could be muscular. patient is safe for discharge for close outpatient follow-up. States she has a PMD I. I feel this is a highly complex case requiring extensive working including EKG/Rhythm strip, Xray/CT/US, Blood/urine lab work, repeat exams while in ED, and administration of strong opiates/narcotics for pain control, admission to hospital or close patient follow up. Diagnosis - chest pain Stable and discharged to home. Instructed to followup with PMD. Return to ED if symptoms recur or worsen Labs Test 03/07/19 19:15 White Blood Count 7.0 K/UL (4.8-10.8) Red Blood Count 4.21 M/UL (4.20-5.40) Hemoglobin 12.5 G/DL (12.0-16.0) Hematocrit 37.8 % (37.0-47.0) Mean Corpuscular Volume 90 FL (80-99) Mean Corpuscular Hemoglobin 29.6 PG (27.0-31.0) Mean Corpuscular Hemoglobin Concent 33.0 G/DL (32.0-36.0) Red Cell Distribution Width 11.2 % (11.6-14.8) Platelet Count 276 K/UL (150-450) Mean Platelet Volume 6.1 FL (6.5-10.1) Neutrophils (%) (Auto) 62.2 % (45.0-75.0) Lymphocytes (%) (Auto) 25.6 % (20.0-45.0) Monocytes (%) (Auto) 8.2 % (1.0-10.0) Eosinophils (%) (Auto) 2.8 % (0.0-3.0) Basophils (%) (Auto) 1.1 % (0.0-2.0) Sodium Level 142 MMOL/L (136-145) Potassium Level 3.3 MMOL/L (3.5-5.1) Chloride Level 103 MMOL/L (98-107) Carbon Dioxide Level 30 MMOL/L (21-32) Anion Gap 9 mmol/L (5-15) Blood Urea Nitrogen 22 mg/dL (7-18) Creatinine 0.8 MG/DL (0.55-1.30) Estimat Glomerular Filtration Rate > 60 mL/min (>60) Glucose Level 109 MG/DL (74-106) Calcium Level 10.2 MG/DL (8.5-10.1) Total Bilirubin 0.3 MG/DL (0.2-1.0) Aspartate Amino Transf (AST/SGOT) 23 U/L (15-37) Alanine Aminotransferase (ALT/SGPT) 17 U/L (12-78) Alkaline Phosphatase 80 U/L (46-116) Total Creatine Kinase 136 U/L (26-308) Creatine Kinase MB 1.0 NG/ML (0.0-3.6) Creatine Kinase MB Relative Index 0.7 Troponin I 0.000 ng/mL (0.000-0.056) Pro-B-Type Natriuretic Peptide 27 pg/mL (0-125) Total Protein 7.9 G/DL (6.4-8.2) Albumin 4.6 G/DL (3.4-5.0) Globulin 3.3 g/dL Albumin/Globulin Ratio 1.4 (1.0-2.7) EKG Diagnostic Results Rate: normal Rhythm: NSR ST Segments: no acute changes Rhythm Strip Diag. Results EP Interpretation: yes Rhythm: NSR, no PVC's, no ectopy Chest X-Ray Diagnostic Results Chest X-Ray Diagnostic Results : Chest X-Ray Ordered: Yes # of Views/Limited/Complete: 1 View Indication: Chest Pain EP Interpretation: Yes Interpretation: no consolidation, no effusion, no pneumothorax, no acute cardiopulmonary disease Impression: No acute disease Last Vital Signs Date Time Temp Pulse Resp B/P (MAP) Pulse Ox O2 Delivery O2 Flow Rate FiO2 03/07/19 19:10 98.0 80 18 150/80 100 Room Air Status: improved Disposition: HOME, SELF-CARE Condition: Stable Referrals: [facility],REFERR[facility] (PCP) Ranulfo Salvador MD Mar 07, 2019 20:01
[2019-03-07 20:05] LABS: ALANINE AMINOTRANSFERASE 17 U/L (12-78); ALBUMIN 4.6 G/DL (3.4-5.0); ALBUMIN/GLOBULIN RATIO 1.4 (1.0-2.7); ALKALINE PHOSPHATASE 80 U/L (46-116); ASPARTATE AMINO TRANSFERASE 23 U/L (15-37); BILIRUBIN,TOTAL 0.3 MG/DL (0.2-1.0); CREATINE KINASE 136 U/L (26-308)
[2019-03-07 20:47] VITALS: BP 137/78
--- NOTE | 2019-03-07 20:47 | NUR ---
ER DISCHARGE NOTE: Patient is cleared to be discharged per ERMD, pt is aox4, on room air, with stable vital signs. pt was given dc and prescription instructions, pt was able to verbalize understanding, pt id band and iv site removed without complications. pt is able to ambulate with steady gait. pt took all belongings.
--- NOTE | 2019-03-08 12:45 | Diagnostic Imaging Report ---
Indication: Chest pain Comparison: October 14, 2016 A single view chest radiograph was obtained. Findings: Cardiomediastinal appearance is within normal limits for age. The lungs are clear. Pulmonary vascularity is appropriate. The diaphragmatic contour is smooth and costophrenic angles are sharp. No pleural effusions are identified. The bones are unremarkable. Impression: No acute findings
--- NOTE | 2019-03-08 18:25 | Cardiology Report ---
APPROVED REPORT EKG Measurement Heart [id number] ID [id number] Normal sinus rhythm Normal ECG
== END 2019-03-07 20:47 | disposition home or self-care (01) ==
LOC: EMR 19:16
DX: R07.9 Chest pain, unspecified (principal); M54.9 Dorsalgia, unspecified; I10 Essential (primary) hypertension; Z88.0 Allergy status to penicillin
CPT/HCPCS: 36415; 71045; 80053; 82550; 82553; 83880; 84484; 85025; 93005; 99284

== ENCOUNTER 2019-04-12 16:18 | Emergency (ER) | payer MEDICAID ==
[~2019-04-12] VITALS: Ht 170.2 cm; Wt 83.9 kg
[~2019-04-12 16:18] MED LIST changes: +HYDROCHLOROTH12.5 M2 ORAL
[2019-04-12 16:41] VITALS: BP 139/95
--- NOTE | 2019-04-12 17:07 | NUR ---
ED Nurse Note: edgar navarrete done blood and urine sent.
[2019-04-12 17:15] LABS: APPEARANCE,URINE CLEAR; BILIRUBIN, URINE NEGATIVE (NEGATIVE); COLOR,URINE PALE YELLOW; GLUCOSE, URINE (UA) NEGATIVE (NEGATIVE); KETONES,URINE NEGATIVE (NEGATIVE); LEUKOCYTE ESTERASE ,URINE 1+ (NEGATIVE); NITRITE,URINE NEGATIVE (NEGATIVE); PH,URINE 5 (4.5-8.0); PROTEIN,URINE NEGATIVE (NEGATIVE); UROBILINOGEN,URINE NORMAL MG/DL (0.0-1.0)
[2019-04-12 17:24] LABS: BASOPHILS % (AUTO) 0.8 % (0.0-2.0); EOSINOPHILS % (AUTO) 2.3 % (0.0-3.0); HEMATOCRIT 42.6 % (37.0-47.0); LYMPHOCYTES % (AUTO) 23.3 % (20.0-45.0); MEAN CORPUSCULAR VOLUME 89 FL (80-99); MONOCYTES % (AUTO) 5.8 % (1.0-10.0); NEUTROPHILS % (AUTO) 67.9 % (45.0-75.0); PLATELET COUNT 276 K/UL (150-450); RED CELL DISTRIBUTION WIDTH 12.6 % (11.6-14.8); WHITE BLOOD COUNT 7.9 K/UL (4.8-10.8)
[2019-04-12 17:27] LABS: ANION GAP 12 mmol/L (5-15); BLOOD UREA NITROGEN 18 mg/dL (7-18); CALCIUM 10.1 MG/DL (8.5-10.1); CARBON DIOXIDE 26 MMOL/L (21-32); CHLORIDE 107 MMOL/L (98-107); CREATININE 0.8 MG/DL (0.55-1.30); POTASSIUM 3.2 MMOL/L (3.5-5.1); SODIUM 144 MMOL/L (136-145)
[2019-04-12 17:32] LABS: ALANINE AMINOTRANSFERASE 33 U/L (12-78); ALBUMIN 4.3 G/DL (3.4-5.0); ALKALINE PHOSPHATASE 101 U/L (46-116); ASPARTATE AMINO TRANSFERASE 21 U/L (15-37); BILIRUBIN,TOTAL 0.3 MG/DL (0.2-1.0)
--- NOTE | 2019-04-12 17:36 | Emergency Room Report ---
History of Present Illness General Chief Complaint: Headache Source: Patient Present Illness HPI 48-year-old female with history of hypertension currently controlled with amlodipine and losartan normal blood pressure at the emergency room today here complaining of 2 days of 7 out of 10 headache that starts around to his maxillary and frontal sinuses rating to both ears and to the back of her head and neck. Denies dizziness, loss of consciousness, blurred vision, photophobia , neck stiffness, chest pain, palpitation, shortness of breath. Patient is compliant with taking her medication. Denies drug use, smoking, alcohol intake. Denies fall and injury. Patient stable with stable vital signs. Has taken Advil with minimal relief for her symptoms. No motor or sensory deficits noted Allergies: Coded Allergies: AZITHROMYCIN (Verified Allergy, Unknown, 09/14/16) PENICILLINS (Unverified Adverse Reaction, Unknown, 03/24/17) Patient History Past Medical History: see triage record Past Surgical History: unable to obtain Pertinent Family History: none Now: No - Menopause Immunizations: UTD Reviewed Nursing Documentation: PMH: Agreed; PSxH: Agreed Nursing Documentation-PMH Past Medical History: No History, Except For Hx Hypertension: Yes Review of Systems All Other Systems: negative except mentioned in HPI Physical Exam Vital Signs Date Time Temp Pulse Resp B/P (MAP) Pulse Ox O2 Delivery O2 Flow Rate FiO2 04/12/19 16:25 98.2 92 20 139/95 (110) 98 Room Air Sp02 EP Interpretation: reviewed, normal General Appearance: no apparent distress, alert, GCS 15, non-toxic Head: normocephalic, atraumatic Eyes: bilateral eye normal inspection, bilateral eye PERRL ENT: hearing grossly normal, normal pharynx, no angioedema, normal voice Neck: full range of motion, no meningismus, supple/symm/no masses Respiratory: chest non-tender, lungs clear, normal breath sounds, no rhonchi, speaking full sentences Cardiovascular #1: regular rate, rhythm, no edema, no murmur Gastrointestinal: normal bowel sounds, non tender, soft, non-distended, no guarding, no rebound Rectal: deferred Musculoskeletal: back normal, gait/station normal, normal range of motion, non- tender Neurologic: alert, oriented x3, responsive, motor strength/tone normal, sensory intact, speech normal Psychiatric: judgement/insight normal, memory normal, mood/affect normal, no suicidal/homicidal ideation Skin: no rash Lymphatic: normal inspection, no adenopathy Medical Decision Making PA Attestation All my diagnosis and treatment plans were reviewed ad discussed with my supervising physician Dr. Galvez Diagnostic Impression: Primary Impression: Sinus headache ER Course 48-year-old female with history of hypertension currently controlled with amlodipine and losartan normal blood pressure at the emergency room today here complaining of 2 days of 7 out of 10 headache that starts around to his maxillary and frontal sinuses rating to both ears and to the back of her head and neck. Denies dizziness, loss of consciousness, blurred vision, photophobia , neck stiffness, chest pain, palpitation, shortness of breath. Patient is compliant with taking her medication. Denies drug use, smoking, alcohol intake. Denies fall and injury. Patient stable with stable vital signs. Has taken Advil with minimal relief for her symptoms. No motor or sensory deficits noted Ddx considered but are not limited to: Migraine headache with aura, migraine headache without aura, tension headache, cluster headache, TBI, subarachnoid hemorrhage, sinus headache Vital signs: are WNL, pt. is afebrile H&PE are most consistent with: Sinus headache ORDERS: CBC, CMP, UA, EKG, prednisone and loratadine ER intervention: None DISCHARGE: At this time pt. is stable for d/c to home. Will provide printed patient care instructions, and any necessary prescriptions. Care plan and follow up instructions have been discussed with the patient prior to discharge. No head CT scan was needed as patient had no injury and no elevated blood pressure and no motor or sensory deficits noted. I advised the patient follow with a primary care provider if worsening symptoms return to the emergency room. EKG Diagnostic Results Rate: normal Rhythm: NSR ST Segments: no acute changes Other Impression No acute ST changes Last Vital Signs Date Time Temp Pulse Resp B/P (MAP) Pulse Ox O2 Delivery O2 Flow Rate FiO2 04/12/19 16:41 98.2 20 139/95 98 Room Air 04/12/19 16:25 92 Disposition: HOME, SELF-CARE Condition: Stable Scripts Loratadine/Pseudoephedrine (CLARITIN-D 12 HOUR TABLET) 1 Each Tab.er.12h 1 TAB ORAL EVERY 12 HOURS, #20 TAB Prov: Bin Branch 04/12/19 Prednisone* (PREDNISONE*) 10 Mg Tablet 10 MG ORAL BID for 5 Days, #10 TAB 0 Refills Prov: Bin Branch 04/12/19 Referrals: [facility],REFERR[facility] (PCP) Patient Instructions: Sinus Headache Additional Instructions: Take medication as directed follow-up with a primary care provider if worsening symptoms return to the emergency room Bin Branch Apr 12, 2019 17:36
[2019-04-12] MEDS ORDERED: CLARITIN-D 121 EAC1 ORAL (17:37)
[2019-04-12] MEDS ORDERED: PREDNISONE10 MG ORAL (17:37)
[2019-04-12 18:26] VITALS: BP 135/95
--- NOTE | 2019-04-12 18:29 | NUR ---
ER DISCHARGE NOTE: Patient is cleared to be discharged per ERMD, pt is aox4, on room air, with stable vital signs. pt was given dc and prescription instructions, pt was able to verbalize understanding, pt id band removed without complications. pt is able to ambulate with steady gait. pt took all belongings.
--- NOTE | 2019-04-13 16:37 | Cardiology Report ---
APPROVED REPORT EKG Measurement Heart [id number] Normal sinus rhythm Normal ECG
== END 2019-04-12 18:30 | disposition home or self-care (01) ==
LOC: EMR 16:36
DX: R51 Headache (principal); I10 Essential (primary) hypertension
CPT/HCPCS: 36415; 80053; 81001; 85025; 93005; 99283